=== PATIENT | male | born 1945 | race Caucasian/White ===

== ENCOUNTER 2018-02-09 09:05 | Day surgery (SDC) | payer OTHER, MEDICARE ==
[2018-02-08 09:10] VITALS: BMI 21.7
--- NOTE | 2018-02-09 09:01 | HP ---
Satellite [facility] - Chief Complaint Chief Complaint: left thumb mass - Past Medical History Allergies/Adverse Reactions: Allergies Allergy/AdvReac Type Severity Reaction Status Date / Time amoxicillin [Amoxicillin] Allergy Mild Rash Verified 02/08/18 09:22 Penicillins Allergy Rash Verified 02/08/18 09:22 - Current Medications Current Medications: Home Medications Medication Instructions Recorded Metoprolol Tartrate [Lopressor -] 25 mg PO BID 12/23/12 Atorvastatin Ca [Lipitor] 20 mg PO HS 05/05/16 [place]-3 Fatty Acids/Fish Oil [Fish 1 each PO BID 05/05/16 Oil 1,000 mg Softgel] Ezetimibe [Zetia] 10 mg PO DAILY 02/08/18 Hydrocodone/Acetaminophen [[place] 1 each PO Q6H PRN #12 tablet MDD 4 02/09/18 5-325 Tablet] Satellite Physical Exam - Physical Examination General Appearance: Well Nourished, Well Developed, Alert & Oriented x3 ENT: Clear Lung: Normal air movement Heart: Regular rate & rhythm Extremities: Other (left hand- + mass thumb, nvi) Neurological: Intact, Alert, Oriented Satellite Impression/Plan - Impression/Plan Impression: left thumb mass Operative Procedure: left thumb mass excision Date to be Performed: 02/09/18
[2018-02-09] MEDS ORDERED: PROPOFOL 20 ML ONE (11:03)
[2018-02-09] MEDS ORDERED: MIDAZOLAM HCL 2 MG/2 ML SINGLE DOSE VIAL ONE (11:03)
[2018-02-09] MEDS ORDERED: LIDOCAINE HCL 1%, 10 MG/ML (20ML VIAL) ONE (11:34)
[2018-02-09] MEDS ORDERED: BUPIVACAINE HCL/PF 0.5% (5MG/ML) 10 ML VIAL ONE (11:34)
[2018-02-09] MEDS ORDERED: LIDOCAINE HCL 1%, 10 MG/ML (20ML VIAL) PNB ONE (12:07)
[2018-02-09] MEDS ORDERED: BUPIVACAINE HCL/PF 0.5% (5MG/ML) 10 ML VIAL IJ ONE (12:07)
--- NOTE | 2018-02-09 12:40 | OP ---
Operative Note - Note: Operative Date: 02/09/18 Pre-Operative Diagnosis: mass left thumb Operation: excision mass and osteophyte left thumb Post-Operative Diagnosis: Same as Pre-op Surgeon: Ceasar Guerrero Anesthesiologist/REAL ESTATE REP: Cole Farrell Anesthesia: Local, MAC Specimens Removed: mass left thumb Estimated Blood Loss (mls): 0 Drains, Volume Out (mls): 0 Blood Volume Replaced (mls): 0 Fluid Volume Replaced (mls): 500 Operative Report Dictated: Yes
[2018-02-09 13:14] VITALS: TEMP 98
[2018-02-09 13:42] VITALS: BP 119/64; PULSE 55
--- NOTE | 2018-02-09 16:11 | OP ---
DATE OF OPERATION: 02/09/2018 PREOPERATIVE DIAGNOSIS: Mass, left thumb, and osteophyte. POSTOPERATIVE DIAGNOSIS: Mass, left thumb, and osteophyte. PROCEDURE: Excision of mass and osteophyte, left thumb. SURGEON: Loretta Rahman MD ASSISTANTS: None. ANESTHESIA: Nestor Bliss MD; Cole Farrell CRNA. Local injection of 10 mL 0.5% Marcaine, 1% lidocaine mixed. DRAINS: None. COMPLICATION: None. SPECIMEN: Mass, left thumb. BLOOD LOSS: None. BLOOD GIVEN: None. FLUID REPLACEMENT: 500 mL. DRAINS: None. COMPLICATIONS: None. This patient is a 72-year-old male with a preoperative diagnosis of a mass on the dorsal aspect of his left thumb IP joint. There was also a small bony osteophyte underneath it. After understanding the potential risks, complications, alternatives, and benefits of surgical versus nonsurgical treatment, the patient elected to undergo this procedure. Patient brought to the operating room. Peripheral IV placed and IV sedation given. One gram of IV Ancef was given. MAC anesthesia was induced. The left upper extremity was prepped and draped in sterile fashion. A small, less than 1 inch, incision was marked out with a marking pen and 10 mL of 0.5% Marcaine and 1% Lidocaine mixed was injected in and around the surgical incision. The left upper extremity was then elevated, exsanguinated with an Esmarch bandage, and the tourniquet inflated to 250 mm Mercury. A longitudinal incision was made with a number 15 scalpel blade. Subcutaneous hemostasis achieved with a bipolar cautery. The incision was made dorsal to the radial nerve vascular bundle. Immediately, once I was through the subcutaneous fat, the mass was identified, looked to be a single ganglion cyst. It was from surrounding structures with the curved iris scissors and it was coming from the dorsal radial aspect of the extensor tendon. It was excised off the extensor tendon in its entirety and passed off the field as specimen. The area was copiously irrigated and washed out. There were no other soft tissues abnormalities but there was a very small bony osteophyte coming off the dorsal radial aspect of the left femoral IP joint, therefore, a rasp was used to shave it down. The area was irrigated and washed out. I was then able to feel and see that the bone spur was gone. The area was irrigated again. The deep dermal layer was closed with 4-0 undyed Vicryl. Final skin reapproximation was done with single interrupted 4-0 nylon sutures. The area was then washed and dried, covered with Xeroform, 4 x 4 gauze, Webril, and Coban. The tourniquet was taken down after a total tourniquet time of about 23 minutes, however, at least 6 of those minutes were waiting for the rasp. The patient was brought to the ambulatory recovery room in stable condition. There were no complications during the case. LORETTA RAHMAN M.D. [id number]
--- NOTE | 2018-02-11 15:50 | PATH ---
Surgical Pathology Report Patient Name: Nikhil RUFFIN [facility]. Rec. #: [id number] /Age/Gender: 1945 (Age: 72) / M Account: [id number] Location: [facility] SURGICAL Taken: 02/09/2018 Received: 02/09/2018 Reported: 02/11/2018 Physicians: Ceasar Guerrero M.D. Specimen(s) Received MASS OF LEFT HAND THUMB Clinical History Left thumb mass Final Diagnosis HAND, LEFT, THUMB, MASS, EXCISION:DENSE FIBROCONNECTIVE TISSUE WITH MYXOID CHANGES CONSISTENT WITH GANGLION CYST. Electronically Signed Isabel Zapata M.D. Gross Description Received in formalin labeled "left hand mass," is a 0.6 x 0.4 x 0.3 cm aggregate of garcia soft tissue fragments. The specimen is entirely submitted in one cassette. /02/09/2018 [place]02/09/2018
== END 2018-02-09 13:50 | disposition home or self-care (01) ==
LOC: JASU-SURG 09:05
PROVIDERS: ATTEND Orthopaedic Surgery
PROC: 0RBX0ZZ Excision of Left Finger Phalangeal Joint, Open Approach (ICD-10-PCS; principal; 2018-02-09 10:30)
DX: M67.442 Ganglion, left hand (principal)
CPT/HCPCS: 88304-TC; 94760

== ENCOUNTER 2020-07-18 17:18 | Emergency (ER) | payer OTHER, MEDICARE ==
[2020-07-18 17:27] VITALS: BP 140/89; PULSE 63; TEMP 98.4; BMI 21.7
[2020-07-18] MEDS ORDERED: DIPHTH,PERTUSS(ACELL),TET 0.5 ML DISP.SYRIN IM ONE ×2 (18:12→18:16)
--- NOTE | 2020-07-18 18:18 | PDOC ---
History of Present Illness - General Chief Complaint: Injury Stated Complaint: L THUMB LACERATION Time Seen by Provider: 07/18/20 17:30 History Source: Patient Exam Limitations: Clinical Condition - History of Present Illness Initial Comments: 07/18/20 18:13 Patient with history of CAD presented with complaint of laceration to tip of left thumb status post accidentally cutting the left thumb with a kitchen knife. Patient does not recall last tetanus vaccine. Denies difficulty moving finger, numbness or tingling sensation to finger. Denies any other symptoms Timing/Duration: reports: just prior to arrival Past History - Medical History Allergies/Adverse Reactions: Allergies Allergy/AdvReac Type Severity Reaction Status Date / Time amoxicillin [Amoxicillin] Allergy Mild Rash Verified 07/18/20 17:21 Penicillins Allergy Rash Verified 07/18/20 17:21 Home Medications: Ambulatory Orders Metoprolol Tartrate [Lopressor -] 25 mg PO BID 12/23/12 Atorvastatin Ca [Lipitor] 20 mg PO HS 05/05/16 [place]-3 Fatty Acids/Fish Oil [Fish Oil 1,000 mg Softgel] 1 each PO BID 05/05/16 Ezetimibe [Zetia] 10 mg PO DAILY 02/08/18 Apixaban [Eliquis -] 5 mg PO BID 02/09/18 Hydrocodone/Acetaminophen [[place] 5-325 Tablet] 1 each PO Q6H PRN #12 tablet MDD 4 02/09/18 Cardiac Disorders: (paroxsym a fib, occas pvc (benign)) COPD: No HTN: Yes (borderline) Hypercholesterolemia: Yes ("controlled") - Surgical History Abdominal Surgery: Yes (HERNIA REPAIRx2) Neurologic Surgery: Yes (AUG, SEP) Orthopedic Surgery: Yes (TRIGGER FINGER LT THUMB) - Psycho-Social/Smoking History Smoking History: Never smoked Have you smoked in the past 12 months: No If you are a former smoker, when did you quit?: 30YRS AGO - Substance Abuse Hx (Audit-C & DAST Scrn) How often the patient has a drink containing alcohol: Monthly or less Number of drinks the patient has on a typical day: 1 or 2 How often the patient has six or more drinks on one occasion: Never Score: In Men: 4 or > Positive; In Women: 3 or > Positive: 1 Screen Result (Pos requires Nsg. Audit-10AR): Negative In the last yr the pt used illegal drug/Rx for NonMed reason: No Score: Yes response is considered Positive: 0 Screen Result (Positive result requires Nsg. DAST-10): Negative Review of Systems - Review of Systems Able to Perform ROS?: Yes Is the patient limited Japanese proficient: No Constitutional: No: Chills, Fever, Malaise HEENTM: No: Symptoms Reported Respiratory: No: Symptoms reported Cardiac (ROS): No: Symptoms Reported Musculoskeletal: Yes: Symptoms Reported, See HPI, Muscle Pain (left thumb pain) Integumentary: Yes: Symptoms Reported, See HPI, Other (laceration to tip of left thumb) Neurological: No: Numbness, Tingling, Weakness All Other Systems: Reviewed and Negative *Physical Exam - Vital Signs Last Vital Signs Temp Pulse Resp BP Pulse Ox 98.4 F 63 18 140/89 100 07/18/20 17:22 07/18/20 17:22 07/18/20 17:22 07/18/20 17:22 07/18/20 17:22 - Physical Exam 07/18/20 18:16 GENERAL: Well developed, well nourished. Awake and alert. No acute distress. PULMONARY: No evidence of respiratory distress. MUSCULOSKELETAL : Full range of motion left thumb. No bony deformities SKIN: Warm and dry. Normal capillary refill. 1 cm linear superficial laceration to plantar aspect of distal phalange of left thumb NEUROLOGICAL: Alert, awake, appropriate. No motor deficits in the lower extremities. Gait is normal without ataxia. PSYCHIATRIC: Cooperative. Good eye contact. Appropriate mood and affect. General Appearance: Yes: Nourished, Appropriately Dressed. No: Apparent Distress Medical Decision Making - Medical Decision Making 07/18/20 18:14 Patient with history of CAD presented with complaint of laceration to tip of left thumb status post accidentally cutting the left thumb with a kitchen knife. Patient does not recall last tetanus vaccine. Denies difficulty moving finger, numbness or tingling sensation to finger. Denies any other symptoms. Patient sent seen by plastic surgeon Dr. Cárdenas to come to the emergency room to meet him here for laceration repair Exam significant for 1 cm linear laceration to plantar aspect of distal phalange of left thumb with minimal bleeding. Full range of motion of left thumb. Dr. Cárdenas here to see patient for laceration repair. See Dr. Cárdenas laceration repair note. Tetanus vaccine ordered. patient stable for discharge with follow-up with Dr. Cárdenas's office in 1 week Discharge - Discharge Information Problems reviewed: Yes Clinical Impression/Diagnosis: Laceration of left thumb without complication Qualifiers: Encounter type: initial encounter Qualified Code(s): S61.012A - Laceration without foreign body of left thumb without damage to nail, initial encounter Condition: Stable Disposition: HOME - Admission No - Follow up/Referral Referrals: Tñoito Cárdenas MD [Staff Physician] - - Patient Discharge Instructions Patient Printed Discharge Instructions: DI for Laceration Repair -- Simple Additional Instructions: Keep wound clean and dry for the next 24 hours. Follow-up with Dr. Cárdenas in 1 week as instructed - Post Discharge Activity
== END 2020-07-18 18:35 | disposition home or self-care (01) ==
LOC: JERFT 17:18
PROC: 3E0234Z Introduction of Serum, Toxoid and Vaccine into Muscle, Percutaneous Approach (ICD-10-PCS; principal; 2020-07-18)
DX: S61.012A Laceration without foreign body of left thumb without damage to nail, initial encounter (principal)
CPT/HCPCS: 90715; 99284-25